=== PATIENT | female | born 1990 | race Caucasian/White ===

== ENCOUNTER 2025-01-27 06:05 | Day surgery (SDC) | payer MEDICAID, SELFPAY ==
--- NOTE | 2025-01-25 17:25 | PAT.ANESEVAL ---
Pre-Assessment Diagnosis/Proposed Procedure Planned Operative Procedure(s): LABIOPLASTY Anesthesia History Anesthesia History - principal architect: Anesthesia History - principal architect Hx Hospitalization No 01/22/25 12:42 Any Problems With Anesthesia No 01/22/25 12:42 Cholinesterase deficiency No 01/22/25 12:42 You/Your Family Experience No 01/22/25 12:42 fever (hyperthermia) with Relationship Recent Exposure to Contagious Disease Does patient have nerve No 01/22/25 12:42 stimulator Patient instructed to have device shut off --Does patient have Pacemaker or ICD? When Was Last Pacemaker Check QUESTION #4 FULL TEXT: You/Your Family Experience fever (hyperthermia) with Anesthesia Last Oral Intake Last Oral intake: Last Oral Intake NPO since Meds taken in AM with sips of water? Meds patient instructed to take am of surgery PONV PONV - principal architect: PONV - principal architect Female Yes 01/22/25 12:42 HX of Motion Sickness No 01/22/25 12:42 HX of N/V After Surgery No 01/22/25 12:42 Non-Smoker Yes 01/22/25 12:42 Duration of Surgery greater Yes 01/22/25 12:42 than 60 minutes Number of Risk Factors 3 01/22/25 12:42 PONV Score Moderate Risk 01/22/25 12:42 Height & Weight Height & Weight: Anesthesia: Height & Weight Height 5 ft 5 in 12/04/24 11:18 Respiratory Assessment Respiratory Assessment - principal architect: Respiratory Tract Infection Hx - principal architect Hx Respiratory Tract Infection No 01/22/25 12:42 STOP Sleep Apnea STOP Sleep Apnea - principal architect: STOP Sleep Apnea - principal architect Hx Hypertension No 01/22/25 12:42 Hx Sleep Apnea No 01/22/25 12:42 CPAP BIPAP Do you snore loudly (louder No 01/22/25 12:42 than talking or can be heard Do you often feel tired/ Yes 01/22/25 12:42 fatigued/ sleepy during daytime? Has anyone observed you stop No 01/22/25 12:42 breathing during sleep? STOP Results Negative 01/22/25 12:42 QUESTION #5 FULL TEXT : Do you snore loudly (louder than talking or can be heard through closed doors)? 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 Specify any problems Hx of Preganancy in last 3 No 01/22/25 12:42 Months Nurse Filling Out Transfusion DSCHRIBER 01/22/25 12:42 & Questions: Date: 01/22/25 01/22/25 12:42 Time: 12:43 01/22/25 12:42 Patient unable to answer at this time (ie. confused, unrespo /Reproduction History /Reproductive History - principal architect: /Reproductive Hx- principal architect Hx Now No 01/22/25 12:42 Gestational Age (in weeks): EDC: Hx Hx Para Hx Section SAB No 01/22/25 12:42 PFSH Medical History Anxiety Alcohol use Restless legs Non-smoker Cardiology follow-up encounter History of echocardiogram History of irregular heartbeat Breast lump Home Medications ?Medication ?Instructions ?Recorded ?Last Taken ?Type cholecalciferol (vitamin D3) 75 75 mcg PO QDAY 12/04/24 Unknown History mcg (3,000 unit) tablet cephalexin 500 mg capsule 500 mg PO Q8H 7 days #21 caps 01/25/25 Unknown Rx ondansetron 4 mg disintegrating 4 mg PO Q8H PRN nausea and 01/25/25 Unknown Rx tablet vomiting 5 days #14 tabs oxycodone 5 mg tablet 5 mg PO Q6H 5 days #20 tabs 01/25/25 Unknown Rx Allergy/AdvReac Type Severity Reaction Status Date / Time epinephrine Allergy Mild Other Verified 01/22/25 12:39 lidocaine Allergy Mild Other Verified 01/22/25 12:39 diphenhydramine (From AdvReac Intermediate Other Verified 01/22/25 12:41 Benadryl) prednisone AdvReac Intermediate Other Verified 01/22/25 12:41 Family History Other Hypertension Surgical History H/O tubal ligation History of tonsillectomy and adenoidectomy Social History Smoking Status: Never smoker Audit: Pertinent Findings Pertinent Findings EKG Perinent findings: 11/06/2021. Sinus rhythm. RSR in V1?nondiagnostic. Right axis deviation may be normal for age. Echo (EF%) pertinent findings: 06/03/2020. EF is 67%. No hemodynamically significant valvular disease. No aortic stenosis. Recommendation Anesthesia Recommendation Anesthesia recommendation: F/U recommended (Is there a cardiology note by the doctor who ordered the echo - Dr. Gaxiola? Otherwise patient is cleared.)
--- NOTE | 2025-01-26 16:23 | PAT.ANE_ITS ---
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 When Was Last Pacemaker Check QUESTION #4 FULL TEXT: You/Your Family Experience fever (hyperthermia) with Anesthesia Last Oral Intake Last Oral intake: Last Oral Intake NPO since Meds taken in AM with sips of water? Meds patient instructed to take am of surgery PONV PONV - network account manager: PONV - network account manager Female Yes 01/22/25 12:42 HX of Motion Sickness No 01/22/25 12:42 HX of N/V After Surgery No 01/22/25 12:42 Non-Smoker Yes 01/22/25 12:42 Duration of Surgery greater Yes 01/22/25 12:42 than 60 minutes Number of Risk Factors 3 01/22/25 12:42 PONV Score Moderate Risk 01/22/25 12:42 Height & Weight Height & Weight: Anesthesia: Height & Weight Height 5 ft 5 in 12/04/24 11:18 Respiratory Assessment Respiratory Assessment - network account manager: Respiratory Tract Infection Hx - network account manager Hx Respiratory Tract Infection No 01/22/25 12:42 STOP Sleep Apnea STOP Sleep Apnea - network account manager: STOP Sleep Apnea - network account manager Hx Hypertension No 01/22/25 12:42 Hx Sleep Apnea No 01/22/25 12:42 CPAP BIPAP Do you snore loudly (louder No 01/22/25 12:42 than talking or can be heard Do you often feel tired/ Yes 01/22/25 12:42 fatigued/ sleepy during daytime? Has anyone observed you stop No 01/22/25 12:42 breathing during sleep? STOP Results Negative 01/22/25 12:42 QUESTION #5 FULL TEXT : Do you snore loudly (louder than talking or can be heard through closed doors)? 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 Specify any problems Hx of Preganancy in last 3 No 01/22/25 12:42 Months Nurse Filling Out Transfusion DSCHRIBER 01/22/25 12:42 & Questions: Date: 01/22/25 01/22/25 12:42 Time: 12:43 01/22/25 12:42 Patient unable to answer at this time (ie. confused, unrespo /Reproduction History /Reproductive History - network account manager: /Reproductive Hx- network account manager Hx Now No 01/22/25 12:42 Gestational Age (in weeks): EDC: Hx Hx Para Hx Section SAB No 01/22/25 12:42 Active Medications Active Medications: Current Medications Generic Name Dose Route Start Last Admin Trade Name Freq PRN Reason Stop Dose Admin Cefazolin Sodium 2 gm/ Sodium 110 mls @ 150 mls/hr 01/27/25 07:30 Chloride IV 01/27/25 08:13 INTRAOP ONE PFSH Medical History Anxiety Alcohol use Restless legs Non-smoker Cardiology follow-up encounter History of echocardiogram History of irregular heartbeat Breast lump Home Medications ?Medication ?Instructions ?Recorded ?Last Taken ?Type cholecalciferol (vitamin D3) 75 75 mcg PO QDAY 5 Unknown History mcg (3,000 unit) tablet cephalexin 500 mg capsule 500 mg PO Q8H 7 days #21 cap s 01/25/25 Unknown Rx ondansetron 4 mg disintegrating 4 mg PO Q8H PRN nausea and 01/25/25 Unknown Rx tablet vomiting 5 days #14 tabs oxycodone 5 mg tablet 5 mg PO Q6H 5 days #20 tabs 01/25/25 Unknown Rx Allergy/AdvReac Type Severity Reaction Status Date / Time epinephrine Allergy Mild Other Verified 01/22/25 12:39 lidocaine Allergy Mild Other Verified 01/22/25 12:39 diphenhydramine (From AdvReac Intermediate Other Verified 01/22/25 12:41 Benadryl) prednisone AdvReac Intermediate Other Verified 01/22/25 12:41 Family History Other Hypertension Surgical History H/O tubal ligation History of tonsillectomy and adenoidectomy Social History Smoking Status: Never smoker Audit: Pertinent Findings HISTORY of Pertinent Findings History of Pertinent Findings: EKG Pertinent Findings EKG Perinent findings 11/06/2021. Sinus rhythm. 01/25/25 17:39 RSR in V1?nondiagnostic. Right axis deviation may be normal for age. Echo Pertinent Findings Echo (EF%) pertinent findings 06/03/2020. EF is 67%. No 01/25/25 17:39 hemodynamically significant valvular disease. No aortic stenosis. Recommendation Anesthesia Recommendation Anesthesia recommendation: OPTIMIZED for anesthesia
[2025-01-27] VITALS (9 sets, daily range): BP systolic 109–119; BP diastolic 67–81; PULSE 72–89; RESP 14–16; TEMP 36.2–36.6; O2SAT 99–100; BMI 18.8
[2025-01-27] MEDS: Lactated Ringers 1,000 ML 15 ML IV (06:41)
[2025-01-27] MEDS: Lidocaine 1% /Epi 1:100 (20ml) 20 ML Vial (07:03)
--- NOTE | 2025-01-27 07:18 | PCM.HP.STD ---
HPI - General HPI Narrative HPI from 04 December 2024: Hazel Savage is a delightful 34 YO woman who presents today for a labial reconstruction consult as a referral from her CORONER/MEDICAL EXAMINER. Pt states she has had 4 vaginal deliveries and last 2 caused swelling and stretching/tearing of the labia. She reports that some scar tissue formed on the labia minora as she recovered from the deliveries. She is done having children and underwent a tubal ligation. 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 She suffers from a lot of rubbing and pulling, especially of the scar tissue. She develops skin irritation/chafing on the labia minora. Wearing a pad to prevent rubbing helps sometimes, but does not completely fix the problem. She also feels pulling at the scar region anteriorly on the labia minora (where there was a tear). Pt denies any personal or family history of bleeding or clotting. Pt is a nonsmoker. She is otherwise healthy (takes Vitamin D supplement, no daily medications). Caprini score 2 (low blood clot risk) 22 Jan 2025: Patient here to discuss upcoming procedure (labioplasty). We talked extensively about the procedure. Patient has a history of tubal ligation. She also has no history of any sexually transmitted diseases (discussed risk of herpes outbreak from irritation of this region from surgery and no prophylactic antivirals needed). Current Encounter (DATE OF SURGERY H&P UPDATE): I saw and examined the patient this morning in pre-operative holding. We discussed risks and benefits of today's surgery and they would like to proceed. NO CHANGE in health history since last seen and evaluated. Ready to proceed with surgery. [facility] Medical History Anxiety Alcohol use Restless legs Non-smoker Cardiology follow-up encounter History of echocardiogram History of irregular heartbeat Breast lump Home Medications ?Medication ?Instructions ?Recorded ?Last Taken ?Type cholecalciferol (vitamin D3) 75 75 mcg PO QDAY 12/04/24 Unknown History mcg (3,000 unit) tablet cephalexin 500 mg capsule 500 mg PO Q8H 7 days #21 caps 01/25/25 Unknown Rx ondansetron 4 mg disintegrating 4 mg PO Q8H PRN nausea and 01/25/25 Unknown Rx tablet vomiting 5 days #14 tabs oxycodone 5 mg tablet 5 mg PO Q6H 5 days #20 tabs 01/25/25 Unknown Rx Allergy/AdvReac Type Severity Reaction Status Date / Time epinephrine Allergy Mild Other Verified 01/27/25 06:31 lidocaine Allergy Mild Other Verified 01/27/25 06:31 diphenhydramine (From AdvReac Intermediate Other Verified 01/27/25 06:31 Benadryl) prednisone AdvReac Intermediate Other Verified 01/27/25 06:31 Family History Other Hypertension Surgical History H/O tubal ligation History of tonsillectomy and adenoidectomy Social History Smoking Status: Never smoker Vital Signs Vital Signs Vital Signs: 01/27/25 06:32 01/27/25 06:32 Temperature 97.8 F Temperature Source Temporal Pulse Rate 81 Respiratory Rate 16 Respiratory Pattern Normal Blood Pressure 119/81 H Blood Pressure Mean 93 Blood Pressure Source Monitor Blood Pressure Position Semi-Fowlers Blood Pressure Location Left Arm Pulse Ox 100 Oxygen Delivery Method Room Air Weight Weight: 112 lb 14.027 oz Body Mass Index (BMI) 18.8 Physical Exam Narrative Female stand in was present during my examination Patient with prominent labia minora bilaterally, with also a notable thick white scar developed anteriorly approximately 2 cm from the clitoral terrazas bilaterally in an area that appeared to have torn perpendicular to the axis of the labia minora (clear separation of the margin of the labia minora). The labia minora appears to be slightly red and chronically irritated from rubbing. When she stands up the labia minora is noticeably hanging approximately 2 cm from the introitus. I discussed and marked the area of excision during our exam today and patient was in agreement in preoperative holding. She reports limited sensation in this area (planned excision area) and is comfortable with the amount of labia minora tissue that we are planning to remove. Assessment & Plan Assessment/Plan (1) Labial pain: (2) Labial irritation: (3) Other specified noninflammatory disorders of vulva and perineum: (4) Hypertrophy of labia minora: PLAN: Plan We talked extensively about surgical options for correction. We talked about wedge resection versus resection of the margin of the labia minora. We talked about expectations. After our discussion, she would like to proceed with labioplasty by resecting the margin of the labia minora to improve the prominence and remove the tension from the scarring. I talked her extensively about risks of wounds and wound healing problems, infection, damage to surrounding structures including nerves with alterations in sensation, poor scarring and pull on the vulva, and pain. I talked her about taking time off of work postoperatively. Talked about exercise restrictions. We talked about postoperative use of witch janae and pads. Plan to submit for insurance approval for labiaplasty (not cosmetic, reconstructive secondary to complications from childbirth). Photos obtained by our nurse practitioner. Will need f/u for pre-operative visit if she schedules surgery. CPT codes for insurance prior authorization are as follows: [id number] Plan from 22 Jan 2025: I discussed with the patient the above-noted risks benefits and alternatives to the procedure, as well as the risks of altered sexual sensation, dyspareunia/painful intercourse secondary to changes in the vulvar region from the labiaplasty surgery, and I reiterated risks of damage to surrounding structures and poor/tight/painful scarring. I talked her extensively about existing asymmetries and asymmetries postoperatively, as well as the risk of failure to obtain the desired result and continued irritation and pain in this region. We talked about potential wound healing complications and need for revision surgeries. I talked her extensively about plan for hybrid curvilinear excision, which is the planned procedure. Rim excision only will not provide her with enough removal of redundant tissue to make a significant improvement (discussed and she was in agreement), and she is not interested in the complete excision of the labia minora flush with the introitus. I gave her a handout/cartoon diagram of the procedure and she was in agreement. After the thorough discussion, we are going to defer any clitoral terrazas work as this is not a problem for her. I will rbavo her again in preoperative holding and discussed the markings on the day of surgery. She is comfortable with the plan for general anesthesia. I discussed with her postoperative protocol with icing as well as sarabjit cardoso. Patient comfortable with the plan and we will go forward with surgery on 27 Jan 2025. INTERVAL H&P PLAN, DATE OF SURGERY: We will proceed with surgery today. We discussed risks of nerve pain/alterations in sensation. I reiterated the risks of poor/painful scaring, as well as the otehr above noted risks. She would like to proceed with labiaplasty today.
--- NOTE | 2025-01-27 07:24 | PRE.ANES_ITS ---
ASA Classification* ASA Classification ASA Classification: 2 Assessment & Plan Anesthesia* Anesthesia Assessment Anesthesia Assessment: Discussed sedation and/or anesthesia options, risks, benefits, and alternatives with patient/parents/legal guardian/POA. Questions invited. The patient/parents/legal guardian/POA seems to understand and agrees to proceed with anesthesia plan. Reviewed the physical assessment, medical history, allergy history and patient home medications list prior to surgery/procedure/anesthetic and documented any changes. Performed airway and anesthesia risk assessments. Anesthesia Type Anesthesia Type: General History Source History Obtained from:: Patient and Chart Anesthesia Focused Assessment* Temperature: 97.8 F Pulse Rate: 81 Blood Pressure: 119/81 Respiratory Rate: 16 Pulse Ox: 100 Oxygen Delivery Method: Room Air Airway Assessment Mouth opens: 2 cm Mallampati Score: I Teeth Condition: Chipped/Broken (Patient has a broken left upper molar #12. 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 When Was Last Pacemaker Check QUESTION #4 FULL TEXT: You/Your Family Experience fever (hyperthermia) with Anesthesia Last Oral Intake Last Oral intake: Last Oral Intake NPO since 20:00 01/27/25 06:32 Meds taken in AM with sips of water? 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 Female Yes 01/22/25 12:42 HX of Motion Sickness No 01/22/25 12:42 HX of N/V After Surgery No 01/22/25 12:42 Non-Smoker Yes 01/22/25 12:42 Duration of Surgery greater Yes 01/22/25 12:42 than 60 minutes Number of Risk Factors 3 01/22/25 12:42 PONV Score Moderate Risk 01/22/25 12:42 Height & Weight Height & Weight: Anesthesia: Height & Weight Height 5 ft 5 in 01/27/25 06:32 Weight: 51.2 kg 01/27/25 06:32 Body Mass Index (BMI) 18.8 01/27/25 06:32 Respiratory Assessment Respiratory Assessment - blanching machine operator: Respiratory Tract Infection Hx - blanching machine operator Hx Respiratory Tract Infection No 01/22/25 12:42 STOP Sleep Apnea STOP Sleep Apnea - blanching machine operator: STOP Sleep Apnea - blanching machine operator Hx Hypertension No 01/22/25 12:42 Hx Sleep Apnea No 01/22/25 12:42 CPAP BIPAP Do you snore loudly (louder No 01/22/25 12:42 than talking or can be heard Do you often feel tired/ Yes 01/22/25 12:42 fatigued/ sleepy during daytime? Has anyone observed you stop No 01/22/25 12:42 breathing during sleep? STOP Results Negative 01/22/25 12:42 QUESTION #5 FULL TEXT : Do you snore loudly (louder than talking or can be heard through closed doors)? 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 Specify any problems Hx of Preganancy in last 3 No 01/22/25 12:42 Months Nurse Filling Out Transfusion DSCHRIBER 01/22/25 12:42 & Questions: Date: 01/22/25 01/22/25 12:42 Time: 12:43 01/22/25 12:42 Patient unable to answer at this time (ie. confused, unrespo /Reproduction History /Reproductive History - blanching machine operator: /Reproductive Hx- blanching machine operator Hx Now No 01/22/25 12:42 Gestational Age (in weeks): EDC: Hx Hx Para Hx Section SAB No 01/22/25 12:42 Active Medications Active Medications: Current Medications Generic Name Dose Route Start Last Admin Trade Name Freq PRN Reason Stop Dose Admin Cefazolin Sodium 2 gm/ Sodium 110 mls @ 150 mls/hr 01/27/25 07:30 Chloride IV 01/27/25 08:13 INTRAOP ONE Lactated Ringer's 1,000 mls @ 15 mls/hr 01/27/25 06:15 01/27/25 06:41 IV 15 mls/hr .Q48H CURTIS Administration PFSH Medical History Anxiety Alcohol use Restless legs Non-smoker Cardiology follow-up encounter History of echocardiogram History of irregular heartbeat Breast lump Home Medications ?Medication ?Instructions ?Recorded ?Last Taken ?Type cholecalciferol (vitamin D3) 75 75 mcg PO QDAY 5 Unknown History mcg (3,000 unit) tablet cephalexin 500 mg capsule 500 mg PO Q8H 7 days #21 cap s 01/25/25 Unknown Rx ondansetron 4 mg disintegrating 4 mg PO Q8H PRN nausea and 01/25/25 Unknown Rx tablet vomiting 5 days #14 tabs oxycodone 5 mg tablet 5 mg PO Q6H 5 days #20 tabs 01/25/25 Unknown Rx Allergy/AdvReac Type Severity Reaction Status Date / Time epinephrine Allergy Mild Other Verified 01/27/25 06:31 lidocaine Allergy Mild Other Verified 01/27/25 06:31 diphenhydramine (From AdvReac Intermediate Other Verified 01/27/25 06:31 Benadryl) prednisone AdvReac Intermediate Other Verified 01/27/25 06:31 Family History Other Hypertension Surgical History H/O tubal ligation History of tonsillectomy and adenoidectomy Social History Smoking Status: Never smoker Review of Systems (Anesthesia) ROS Narrative System reviewed and no additional complaints, except as documented.
--- NOTE | 2025-01-27 07:30 | LES_PTH ---
PATIENT: JASSI MALONE LOC: [facility] – [place] U#:[id number] AGE/SX: 34/F ROOM: RE01/27/[address]: Dr. Tom Childs MD : 1990 BED: DIS: 01/27/2025 SPEC #: [id number] RECD: 01/27/25 10:27 STATUS: LEXIE ABRAHAM #: [id number] STEPHANIE: 01/27/25 07:[address]: Tom Childs DEPT: SURGICAL PATHOLOGY RECD BY: Jairo Matthews Tissues: A - Labium, NOS B - Labium, NOS Procedures: Surgery Specimen Level II HEADER OPERATION: Labioplasty PRE-OP DIAGNOSIS: Labia pain, labial irritation, other specified noninflammation disorders of vulva and perineum, hypertrophy of labia minora TISSUE SUBMITTED: A- Right labia, B- Left labia MICROSCOPIC DIAGNOSIS A. Skin, right labium, labioplasty: * Mild dermal fibrosis. B. Skin, left labium, labioplasty: * Mild dermal fibrosis. MICROSCOPIC DESCRIPTION Slides are reviewed. GROSS DESCRIPTION A. Received in formalin in a container labeled with the patient's name, date of , and right labia is a 3.3 x 1.0 x 0.8 cm unoriented portion of rubbery skin. The epidermal surface is pink-steele and wrinkled, but otherwise unremarkable. The deep margin is inked green, and serial sections reveal white-pink, focally hemorrhagic surfaces. Wine Consultant sections submitted in A1. B. Received in formalin in a container labeled with the patient's name, date of , and left labia is a 3.6 x 0.9 x 0.6 cm unoriented portion of rubbery skin. The epidermis is pink-steele, wrinkled, but otherwise unremarkable. The deep margin is inked green, and serial sections reveal pink-steele, focally hemorrhagic surfaces. Wine Consultant sections submitted in B1. [facility] 01-27-2025 CPT:76843g3
[2025-01-27] MEDS: Cefazolin 2 GM in 0.9% Normal Saline (100mL Bag) 100 ML IV (07:33)
--- NOTE | 2025-01-27 07:51 | OP.PCM_ITS ---
Operative Report (Standard) Operative Information Date of Procedure: 01/27/25 Pre-Operative Diagnosis: Labial hypertrophy (labia minora) Post-Operative Diagnosis: Same Surgery/Procedure Performed: 1) Labiaplasty (Curvilinear hybrid rim excision) (CPT: 97037) biofuels production technician: Yes Phlebotomist: Adalgisa Wright Tasks completed by magistrate assistant: Retracting Type of Anesthesia: General/Supplemental (4 cc of 0.25% marcaine with 1:200,000 epinephrine ) RN Documented Start/Stop Times: Operation Date: 01/27/25 07:30 Case Time Into Pre-Op 01/27/25 06:09 Out of Pre-Op 01/27/25 07:30 Anesthesia Start 01/27/25 07:33 Into Room 01/27/25 07:33 Procedure End 01/27/25 08:36 Anesthesia End 01/27/25 08:39 Out of Room 01/27/25 08:39 Into Recovery 01/27/25 08:42 Procedure Start Time: 07:33 Procedure Stop Time: 08:36 Select all DRAINS/GRAFTS/IMPLANTS that apply: None Estimated Blood Loss: minimal Specimen collected: Yes Description of specimen(s) removed: labial tissue Description of surgery: Indications: Hazel Savage is a 34-year-old female who presents today with labial hypertrophy. She is scheduled for labioplasty. I talked her extensively about the risks, benefits, and alternatives to the procedure, as well as the planned tissue resection (marked with her in preoperative holding). She was in agreement with the plan and elected to proceed with surgery. Procedure details: Patient was correctly identified in preoperative holding. She was taken back to the operating room where she was administered general anesthesia and placed carefully in lithotomy position with care to pad all pressure points. She was prepped and draped in sterile fashion and local anesthesia was injected as noted above. He was given time to take effect. A timeout was performed. On the right and the left labia minora, a curvilinear rim excision was then performed with a 15 blade scalpel and curved Puentes scissors with care taken to l eave approximately 3 mm of mucosal cough at the level of the vulva. There was no clitoral terrazas excision as this was not indicated. The excess hypertrophied labial tissue was sent to pathology. The wound was irrigated with copious amounts normal saline. Hemostasis was obtained with Bovie electrocautery bilaterally. Several deep dermal 4-0 Vicryl sutures were placed followed by several segments of running 4-0 Vicryl top sutures. Patient tolerated the procedure well and was awakened and taken to PACU in stable condition. Surgical Findings: Excess labia minora Complications Complications: No Admit VTE Documentation VTE Mechan Device Prophylaxis: SCD's
--- NOTE | 2025-01-27 08:23 | PCM.POST.ANE ---
Anesthesia: Postop Eval I Current Vital Signs Temperature: 97.7 F Pulse Rate: 89 Blood Pressure: 114/77 Respiratory Rate: 14 Pulse Ox: 99 Oxygen Delivery Method: Room Air Assessment Airway patent: Yes Spontaneous unlabored respirations: Yes Mental status: Awake and Calm nausea: No Vomiting: No Anesthesia Complication: No Fluid Hydration Crystalloid volume administer (ml): 700 Total IV fluid infused: 700 Progress Note Anesthesia document: Postop Eval 1 completed: Yes
[2025-01-27] MEDS: Bupiv/Epi 0.25% 30 ML Vial (08:24)
--- NOTE | 2025-01-27 09:36 | POSTOPAN2_ITS ---
Anesthesia Postop Eval I Sum Postop Eval Completion status Anesthesia document: Postop Eval 1 completed: Yes Anesthesia Postop Eval I Summary Anesthesia Postop Eval I Summary: Anesthesia Postop Eval I: Assessment Summary Airway patent Yes 01/27/25 08:44 LEATHER GOODS [email or web address] Spontaneous unlabored Yes 01/27/25 08:44 LEATHER GOODS [email or web address] respirations Mental status Awake,Calm 01/27/25 08:44 LEATHER GOODS [email or web address] nausea No 01/27/25 08:44 LEATHER GOODS [email or web address] Vomiting No 01/27/25 08:44 LEATHER GOODS [email or web address] Anesthesia Postop Eval I: Fluid Summary Crystalloid volume administer 700 01/27/25 08:44 LEATHER GOODS [email or web address] (ml) Colloids volume administered ( ml) Blood Product volume administered (ml) Total IV fluid infused 700 01/27/25 08:44 LEATHER GOODS [email or web address] Anesthesia Postop Eval I: Summary Notes Anesthesia Complication No 01/27/25 08:44 LEATHER GOODS [email or web address] Anesthesia Complication Comment: Post-operative progress note Anesthesia: Postop Eval II Evaluation Mental status: Awake and Calm Pain Level: 1 nausea: No Vomiting: No Complications Anesthesia Complication: No
--- NOTE | 2025-01-27 09:36 | PCM.POSTANE2 ---
Anesthesia Postop Eval I Sum Postop Eval Completion status Anesthesia document: Postop Eval 1 completed: Yes Anesthesia Postop Eval I Summary Anesthesia Postop Eval I Summary: Anesthesia Postop Eval I: Assessment Summary Airway patent Yes 01/27/25 08:44 SENIOR PROJECT [email or web address] Spontaneous unlabored Yes 01/27/25 08:44 SENIOR PROJECT COORDINATOR.[email or web address] respirations Mental status Awake,Calm 01/27/25 08:44 SENIOR PROJECT COORDINATOR.[email or web address] nausea No 01/27/25 08:44 SENIOR PROJECT COORDINATOR.[email or web address] Vomiting No 01/27/25 08:44 SENIOR PROJECT [email or web address].[email or web address] Anesthesia Postop Eval I: Fluid Summary Crystalloid volume administer 700 01/27/25 08:44 SENIOR PROJECT [email or web address] (ml) Colloids volume administered ( ml) Blood Product volume administered (ml) Total IV fluid infused 700 01/27/25 08:44 SENIOR PROJECT COORDINATOR.[email or web address] Anesthesia Postop Eval I: Summary Notes Anesthesia Complication No 01/27/25 08:44 SENIOR PROJECT COORDINATOR.[email or web address] Anesthesia Complication Comment: Post-operative progress note Anesthesia: Postop Eval II Evaluation Mental status: Awake and Calm Pain Level: 1 nausea: No Vomiting: No Complications Anesthesia Complication: No
== END 2025-01-27 09:38 | disposition home or self-care (01) ==
LOC: SDC 06:06 → AC 06:07
PROVIDERS: Referring Provider Surgery Plastic and Reconstructive Surgery; Visit Provider Surgery Plastic and Reconstructive Surgery
PROC: (CPT 56620; principal; 2025-01-27 07:20)
DX: N90.60 Unspecified hypertrophy of vulva (principal)
CPT/HCPCS: 56620; 00906; 88305; 88302; J2405